=== PATIENT | male | born 1975 | race Caucasian/White ===

== ENCOUNTER 2022-09-23 21:27 | Emergency (ER) | payer SELFPAY ==
[2022-09-23 21:40] VITALS: BP 155/97; BP 168/104; PULSE 74; PULSE 76; RESP 18; TEMP 36.6; O2SAT 96; O2SAT 97; BMI 35.2
--- NOTE | 2022-09-23 21:58 | HMH.EDGENADL ---
Discharge Plan Disposition Patient Disposition: Home, Self-Care Condition: Good Prescriptions Prescriptions: New methocarbamol 750 mg tablet 750 mg PO Q8H PRN (Reason: pain) Qty: 20 0RF Referrals Follow up/Referrals: Provider,Referral, [Primary Care Provider] - See instructions Activity Restrictions/Add. Instructions Additional Instructions/Restrictions: You were evaluated in the emergency department today. At this time, we feel that your pain is musculoskeletal. Please olive picker your prescription for muscle relaxer and take as needed for pain. You may also take Tylenol and ibuprofen at home as needed. Return to the emergency department for any new or worsening symptoms. Follow-up with your primary care provider over the next 3 days. Clinical Impressions Clinical Impression: Strain of muscle of torso Stand Alone Forms Stand Alone Forms: Work/School Release Instructions Patient Instructions: DI for Muscle Strain, DI for Acute Pain -- Adult, DI for Muscle Spasm Discharge ED Provider: Melody Le General Adult HPI General Chief complaint: PAIN Stated complaint: Left side pain Time Seen by Provider: 09/23/22 21:32 Mode of Arrival: Ambulatory Source of Information: Patient Limitations: No Limitations Description of Symptoms (Recalled from ER Triage Doc. by RN): Pt states that he has had left sided rib pain for over a week. States that he was laying down and when he sat up it began to hurt. Pt states that he came to the ed tonight because he has not been able to work since it began. History of Present Illness HPI narrative: He also denies any numbness or tingling.This patient is a 47-year-old male with no significant past medical history presenting to the emergency department for evaluation with concern for left-sided rib pain for approximately 1 week. He states that whenever he sat up in bed it started to hurt. He denies any known falls or trauma. He states that it is worse with any sort of movement, especially with raising his left arm. He denies any fevers, chills, chest pain, shortness of breath, abdominal pain, nausea, vomiting, changes bowel movements, dysuria, hematuria, polyuria, or other concerns. He also denies any numbness or tingling. Related Data Previous Rx's Medication Instructions Recorded methocarbamol 750 mg tablet 750 mg PO Q8H PRN pain #20 tabs 09/23/22 Allergies Allergy/AdvReac Type Severity Reaction Status Date / Time No Known Allergies Allergy Verified 09/23/22 21:47 [facility] Disclaimer: The information contained in this section may have been updated after the patient was seen, as this information can be updated by other users. Social History Smoking Status: Current every day smoker alcohol intake: never current occupational status: employed Travel in the last 8 weeks: None ROS Obtained: Yes All systems reviewed & no additional complaints except as documented 14 point review of systems obtained and negative except as mentioned in HPI. Physical Exam General General appearance: alert and in no apparent distress Head Head exam: atraumatic and normocephalic Eye Eye exam: Present normal appearance, PERRL and EOMI ENT ENT exam: Present normal exam and normal oropharynx Neck Neck exam: Present normal inspection, full ROM and trachea midline Chest Chest inspection: Present normal inspection and symmetric chest wall rise Respiratory Respiratory exam: Present normal lung sounds bilaterally; Absent respiratory distress or wheezes Cardiovascular Cardiovascular exam: Present regular rate and normal rhythm Abdominal Exam Abdominal exam: Present soft; Absent distention, tenderness or guarding Extremities Exam Extremities exam: Present normal inspection, full ROM and normal capillary refill; Absent tenderness or edema Back Exam Back exam: Present full ROM and tenderness (Tenderness to palpation over the left p
[2022-09-23 22:14] VITALS: BP 155/97; PULSE 74; RESP 18; TEMP 36.6; O2SAT 99
== END 2022-09-23 22:20 | disposition home or self-care (01) ==
PROVIDERS: Emergency Provider Emergency Medicine
DX: S29.011A Strain of muscle and tendon of front wall of thorax, initial encounter (principal); F17.200 Nicotine dependence, unspecified, uncomplicated; X58.XXXA Exposure to other specified factors, initial encounter
CPT/HCPCS: 96372; 99283; 99284

== ENCOUNTER 2023-06-08 16:19 | Observation (INO) | payer SELFPAY ==
[2023-06-08 16:20] VITALS: BP 183/95; PULSE 98; RESP 20; TEMP 37.1; O2SAT 98; BMI 36.6
[2023-06-08 16:49] LABS: VBG Base Excess -1.9 mmol/L (-2.4-2.3); VBG HCO3 23.3 mmol/L (23-30); VBG Oxygen Saturation 92.4 % (50-70); VBG PCO2 40.5 mmol/L (35-51); VBG PH 7.38 mmol/L (7.31-7.41); VBG PO2 64.4 mmol/L (28-40); VBG Total CO2 24.5 mmol/L (23-27)
[2023-06-08] MEDS: LACTATED RINGERS 1000ML 1,000 ML 999 ML IV (16:49)
[2023-06-08 16:50] LABS: Basophils # 0.1 K/mm3 (0-0.2); Eosinophils # 0.3 K/mm3 (0.0-0.4); Eosinophils % 3.2 % (0.1-12.0); Hematocrit 49.2 % (42.0-52.0); Hemoglobin 16.8 g/dL (14.1-18.0); Lymphocytes % 24.8 % (10-50); Mean Corpuscular HGB Conc 34.1 g/dL (31.8-35.4); Mean Corpuscular Hemoglobin 31.2 pg (27.0-31.2); Mean Corpuscular Volume 91.3 fl (80-94); Mean Platelet Volume 9.1 fl (7.4-10.4); Monocytes # 0.4 K/mm3 (0.1-1.0); Monocytes % 5.2 % (1.7-9.3); Neutrophils # 5.2 K/mm3 (1.8-7.8); Neutrophils % 65.8 % (37.0-80.0); Platelet Count 179 K/mm3 (142-424); Red Blood Count 5.39 M/mm3 (4.60-6.20); Red Cell Distribution Width 13.2 % (11.5-17.5); White Blood Count 7.9 K/mm3 (4.8-10.8)
[2023-06-08 16:51] LABS: Microscopic, Urine URINE MICROSCOPIC (MICROSCOPIC)
[2023-06-08 16:59] LABS: Appearance,Urine CLEAR (Clear); Bilirubin,Urine Negative (Negative); Blood, Urine Negative (Negative); Color,Urine YELLOW (Yellow); Glucose,Urine (UA) 3+ (Negative); Ketones,Urine Negative (Negative); Leukocyte Esterase,Urine Negative (Negative); Nitrate,Urine Negative (Negative); PH,Urine 6.5 (5.0-8.5); Protein,Urine Negative (Negative); Specific Gravity, Urine <= 1.005 (1.005-1.030); Urobilinogen,Urine 0.2 EU/dl (0.2)
[2023-06-08 17:00] LABS: Alanine Aminotransferase 60 U/L (12-78); Albumin Level 3.9 g/dl (3.5-5.0); Albumin/Globulin Ratio 1.4 (1.1-1.8); Alkaline Phosphatase 122 U/L (38-126); Anion Gap 13.5 mEq/L (5-15); Aspartate Amino Transferase 44 U/L (17-59); Bilirubin,Total 0.7 mg/dl (0.2-1.3); Blood Urea Nitrogen 26 mg/dl (9-20); Calcium 8.7 mg/dl (8.4-10.2); Carbon Dioxide 26 mmol/L (22.0-30.0); Chloride 93 mmol/L (98-107); Creatinine Clearance Estimated 196 mL/min (50-200); Estimated Glomerular Filt Rate 103 ml/min (>60); GFR (African American) 125 ML/MIN (>60); Globulin 2.7 g/dL (1.3-3.2); Potassium 5.5 mmoL/L (3.5-5.1); Sodium 127 mmol/L (136-145); Total Protein,Serum 6.6 g/dl (6.3-8.2)
[2023-06-08 17:01] VITALS: BP 194/104; PULSE 102; O2SAT 92
[2023-06-08 17:10] LABS: Acetone, Serum (Rapid) None Detected (None Detect)
[2023-06-08 17:11] LABS: Glucose 873 mg/dl (74-100)
--- NOTE | 2023-06-08 17:16 | HMH.EDGENADL ---
Discharge Plan Disposition Patient Disposition: Admitted Chief Complaint: Weakness Prescriptions Prescriptions: No Action methocarbamol 750 mg tablet 750 mg PO Q8H PRN (Reason: pain) Qty: 20 0RF Referrals Follow up/Referrals: Provider,Referral, MD [Primary Care Provider] - See instructions Clinical Impressions Clinical Impression: Diabetes mellitus, new onset, Polyuria, Polydipsia Discharge ED Provider: Tim Flores General Adult HPI General Chief complaint: Weakness Stated complaint: HBP, thirsty, blurry vision Time Seen by Provider: 06/08/23 16:24 Mode of Arrival: Ambulatory Source of Information: Patient Limitations: No Limitations Description of Symptoms (Recalled from ER Triage Doc. by RN): Patient presents to ED with increased fatigue and a fasting blood sugar of high at home. Patient denies having diabetes. Denies N/V/D. History of Present Illness HPI narrative: Otherwise healthy 47-year-old male presenting with polydipsia and polyuria. Has been feeling thirsty for couple of weeks. 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 Checked his blood sugar and it was too high to read. Came to the emergency department for further evaluation. Patient has no other complaints at this time. Related Data Previous Rx's Medication Instructions Recorded methocarbamol 750 mg tablet 750 mg PO Q8H PRN pain #20 tabs 09/23/22 Allergies Allergy/AdvReac Type Severity Reaction Status Date / Time No Known Allergies Allergy Verified 09/23/22 21:47 [facility] Disclaimer: The information contained in this section may have been updated after the patient was seen, as this information can be updated by other users. Social History (Updated 09/23/22 @ 22:59 by Melody Le DO) Smoking Status: Current every day smoker alcohol intake: never current occupational status: employed Travel in the last 8 weeks: None ROS Obtained: Yes All systems reviewed & no additional complaints except as documented Physical Exam General General appearance: alert and in no apparent distress Head Head exam: atraumatic and normocephalic Eye Eye exam: Present normal appearance, PERRL and EOMI ENT ENT exam: Present mucous membranes moist Neck Neck exam: Present normal inspection, full ROM and trachea midline Respiratory Respiratory exam: Absent respiratory distress, wheezes, stridor, accessory muscle use or prolonged expiratory phase Cardiovascular Cardiovascular exam: Present normal rhythm Abdominal Exam Abdominal exam: Present soft; Absent distention, tenderness, guarding, rebound or rigidity Extremities Exam Extremities exam: Absent edema Neurological Exam Neurological exam: Present alert, oriented X3, CN II-XII intact and normal gait; Absent motor sensory deficit Skin Skin exam: Present warm and dry; Absent diaphoresis or erythema Medical Decision Making Medical Records Medical records reviewed: Yes I reviewed the patient's medical records. Elieser Inquiry Pt receiving controlled substance: No Elieser was queried for this patient: No Vital Signs: 06/08/23 16:20 06/08/23 17:01 Temperature 98.7 F Temperature Source Oral Pulse Rate 102 H Pulse Rate [Right Brachial] 98 H Respiratory Rate 20 Blood Pressure 194/104 H Blood Pressure [Right Arm] 183/95 H Blood Pressure Mean 134 Blood Pressure Mean [Right Arm] 124 Blood Pressure Source [Right Arm] Automatic Cuff Blood Pressure Position [Right Arm] Sitting 02 Sat by Pulse Oximetry 98 92 L Oxygen Delivery Method Room Air Lab Data Lab Results 06/08/23 16:35: WBC 7.9, RBC 5.39, Hgb 16.8, Hct 49.2, MCV 91.3, MCH 31.2, MCHC 34.1, RDW 13.2, Plt Count 179, MPV 9.1, Neut % (Auto) 65.8, Lymph % (Auto) 24.8, [place] % (Auto) 5.2, Eos % (Auto) 3.2, Baso % (Auto) 1.0, Neut # (Auto) 5.2, Lymph # (Auto) 2.0, [place] # (Auto) 0.4, Eos # (Auto) 0.3, Baso # (Auto) 0.1, Sodium 127 L, Potassium 5.5 H, Chloride 93 L, Carbon Dioxide 26, Anion Gap 13.5, BUN 26 H, Creatinine 0.80, Estimated Creat Clear 196, Estimated GFR 103, Est GFR ( Amer) 125, Glucose 873 H*, Hemoglobin A1c 11.7 H, Calcium 8.7, Total Bilirubin 0.7, AST 44, ALT 60, Alkaline Phosphatase 122, Total Protein 6.6, Albumin 3.9, Globulin 2.7, Albumin/Globulin Ratio 1.4, Acetone Level None detected 06/08/23 16:41: VBG pH 7.38, VBG pCO2 40.5, VBG pO2 64.4 H, VBG HCO3 23.3, VBG Total CO2 24.5, VBG O2 Saturation 92.4 H, VBG Base Excess -1.9 06/08/23 16:45: Urine Color Yellow, Urine Appearance Clear, Urine pH 6.5, Ur Specific [place] <= 1.005, Urine Protein Negative, Urine Glucose (UA) 3+, Urine Ketones Negative, Urine Blood Negative, Urine Nitrate Negative, Urine Bilirubin Negative, Urine Urobilinogen 0.2, Ur Leukocyte Esterase Negative, Urine RBC None, Urine WBC 3-5, Ur Squamous Epith Cells Occasional, Urine Bacteria None, Urine Trichomonas Occasional 06/08/23 16:35 06/08/23 16:35 Orders (Tests/Meds): ED MEDICATIONS Generic Name Dose Route Start Last Admin Trade Name Freq PRN Reason Stop Dose Admin Sodium Chloride 10 ml 06/08/23 16:41 Sodium Chloride 0.9% 10ml Flush Syringe IV 07/08/23 16:40 NEEDED PRN Maintain IV Site Discontinued Medications Generic Name Dose Route Start Last Admin Trade Name Freq PRN Reason Stop Dose Admin Sodium Chloride 1,000 mls @ 999 mls/hr 06/08/23 16:45 06/08/23 16:47 Sod Chlor 0.9% 1000ml Bag IV 06/08/23 17:45 Not Given .Q1H1M SVETLANA Lactated Ringer's 1,000 mls @ 999 mls/hr 06/08/23 16:47 06/08/23 16:49 Lactated Ringer's 1000 Ml Bag IV 06/08/23 17:47 999 mls/hr .Q1H1M ONE Administration Insulin Human Regular 6 unit 06/08/23 17:23 06/08/23 17:33 Insulin Human Regular 100 Units/Ml 10ml Vial 0.05 unit/kg (6 unit) 06/08/23 17:24 6 unit IV Administration ONCE ONE ORDERS Category Date Time Status Acetone, Serum (Rapid) Stat Lab 06/08/23 16:35 Completed CMP [Comprehensive Metabolic Panel] Stat Lab 06/08/23 16:35 Completed Complete Blood Count Auto Diff Stat Lab 06/08/23 16:35 Completed Glucose,Random Stat Lab 06/08/23 18:55 Received Hemoglobin A1C Stat Lab 06/08/23 16:35 Completed Urinalysis-Acute [Urinalysis and Microscopic] Stat Lab 06/08/23 16:45 Completed Venous Blood Gas Stat RT 06/08/23 16:41 Completed Medical Decision Narrative: Otherwise healthy 47-year-old male presenting with polydipsia and polyuria. Has been feeling thirsty for couple of weeks. 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 Checked his blood sugar and it was too high to read. Came to the emergency department for further evaluation. Patient has no other complaints at this time. History was obtained via conversation with patient. On arrival, patient hemodynamically stable, alert, oriented x4, appropriate, GCS 15, moving all extremities spontaneously, pupils equal and reactive to light. Full physical exam performed and significant for well-appearing male no acute distress. He smells of ketones. Hemodynamically stable, hypertensive if anything. Nontachycardic. Saturating appropriately. Abdomen is soft, nontender. Cardiopulmonary exam normal. Differential includes type I versus type 2 diabetes, DKA, HHNK, metabolic, endocrinologic, medication induced, among others. Patient was given fluid bolus for symptomatic management and correction of underlying abnormalities. Workup independently interpreted and significant for hyperglycemia glucose greater than 800, hemoglobin A1c 11.7. Also hyperkalemic and hyponatremic. Kidney function normal. Urinalysis with glucose, but no ketones. Acetone negative. Nonactionable CBC. On reevaluation, patient given 6 units insulin, repeat glucose too high to read. Repeat quantitative glucose was sent. Prior to repeat glucose, medicine was contacted for evaluation for admission and diabetes management, agreeable to plan. Given patient presentation, workup, history, this most likely represents new onset diabetes. Because patient high risk for clinical decompensation, deemed appropriate for inpatient admission. Results were relayed to patient who voiced understanding and patient was agreeable to inpatient admission and management. Patient was admitted to the hospital for further definitive management. Critical Care Critical Care Time Critical Care Time: No
--- NOTE | 2023-06-08 17:23 | PC.NURSE ---
LAB CALLED WITH CRITICAL GLUCOSE OF 783 AWARE
[2023-06-08 17:24] LABS: Hemoglobin A1C 11.7 % (4.0-6.0)
[2023-06-08 17:31] LABS: Squamous Epithelial Cell,Urine Occasional #/hpf (0-5); Trichomonas,Urine Occasional /lpf
[2023-06-08] MEDS: INSULIN HUMAN REGULAR 100 UNITS/ML 10ML VIAL 6 UNIT IV (17:33)
--- NOTE | 2023-06-08 18:33 | PC.NURSE ---
FINGER STICK STILL READING HIGH LAB CALLED
--- NOTE | 2023-06-08 18:52 | PC.NURSE ---
talking with hospitalist
--- NOTE | 2023-06-08 19:19 | PC.NURSE ---
patient being admitted to second floor at this time.
--- NOTE | 2023-06-08 19:25 | PC.NURSE ---
Addendum entered by Helene Llanes RN 06/08/23 19:25: OBSERVATION ADMISSION TO 212 WITH DX OF NEW ONSET DM TO SERVICE OF HOSPITALIST. Original Note: OBSERVATION ADMISSION TO
[2023-06-08 19:35] LABS: Glucose,Random 702 mg/dL (74-100)
--- NOTE | 2023-06-08 19:37 | PC.NURSE ---
Lauren from the lab called in a critical lab value for Pt. Glucose is 702. and RN advised. CR
--- NOTE | 2023-06-08 19:59 | P.HP_ITS ---
Attending attestation Patient was seen and evaluated at the bedside myself, agree with CALVIN note. History of Present Illness *Admission Date: 06/08/23 *Reason for visit:: hyperglycemia *History of present illness: This is a 47-year-old obese male with referred PMHx of hypertension, no currently on any medication, due to lack of insurance, current smoker presenting with polydipsia and polyuria. Has been feeling weak, lightheadedness, thirsty for couple of weeks. but symptoms worsened over the last two days. Stated that he told his sister who is and RN about this symptoms and they recommended to measure his BS ending on too high to read. Came to the emergency department for further evaluation. Patient has no other complaints at this time. Admitted for further management. [facility] Disclaimer: The information contained in this section may have been updated after the patient was seen, as this information can be updated by other users. Social History (Updated 09/23/22 @ 22:59 by Melody Le DO) Smoking Status: Current every day smoker alcohol intake: never current occupational status: employed Travel in the last 8 weeks: None Review of Systems Review of Systems Review of systems:: pertinent systems reviewed and negative unless documented below Meds Home Medications and Allergies Home Medications Medication Instructions Recorded Confirmed Type methocarbamol 750 mg tablet 750 mg PO Q8H PRN pain #20 tabs 09/23/22 Rx New Prescriptions to Start Prescriptions: Allergies Allergy/AdvReac Type Severity Reaction Status Date / Time No Known Allergies Allergy Verified 09/23/22 21:47 Exam Data for Last 24 hours Vital signs and Labs for Last 24 Hours: Temp Pulse Resp BP Pulse Ox O2 Del Method 98.7 F 102 H 20 194/104 H 92 L Room Air 06/08/23 16:20 06/08/23 17:01 06/08/23 16:20 06/08/23 17:06/08/23 17:06/08/23 16:20 Laboratory Results - last 24 hr 06/08/23 16:35: WBC 7.9, RBC 5.39, Hgb 16.8, Hct 49.2, MCV 91.3, MCH 31.2, MCHC 34.1, RDW 13.2, Plt Count 179, MPV 9.1, Neut % (Auto) 65.8, Lymph % (Auto) 24.8, [place] % (Auto) 5.2, Eos % (Auto) 3.2, Baso % (Auto) 1.0, Neut # (Auto) 5.2, Lymph # (Auto) 2.0, [place] # (Auto) 0.4, Eos # (Auto) 0.3, Baso # (Auto) 0.1, Sodium 127 L, Potassium 5.5 H, Chloride 93 L, Carbon Dioxide 26, Anion Gap 13.5, BUN 26 H, Creatinine 0.80, Estimated Creat Clear 196, Estimated GFR 103, Est GFR ( Amer) 125, Glucose 873 H*, Hemoglobin A1c 11.7 H, Calcium 8.7, Total Bilirubin 0.7, AST 44, ALT 60, Alkaline Phosphatase 122, Total Protein 6.6, Albumin 3.9, Globulin 2.7, Albumin/Globulin Ratio 1.4, Acetone Level None detected 06/08/23 16:41: VBG pH 7.38, VBG pCO2 40.5, VBG pO2 64.4 H, VBG HCO3 23.3, VBG Total CO2 24.5, VBG O2 Saturation 92.4 H, VBG Base Excess -1.9 06/08/23 16:45: Urine Color Yellow, Urine Appearance Clear, Urine pH 6.5, Ur Specific [place] <= 1.005, Urine Protein Negative, Urine Glucose (UA) 3+, Urine Ketones Negative, Urine Blood Negative, Urine Nitrate Negative, Urine Bilirubin Negative, Urine Urobilinogen 0.2, Ur Leukocyte Esterase Negative, Urine RBC None, Urine WBC 3-5, Ur Squamous Epith Cells Occasional, Urine Bacteria None, Urine Trichomonas Occasional 06/08/23 18:55: Random Glucose 702 H* I & O for Last 24 hours: Intake & Output 06/05/23 06/06/23 06/07/23 06/08/23 23:59 23:59 23:59 23:59 Weight 122.47 kg Constitutional Constitutional: mild distress, obese and cooperative *Routine HEENT Exam Head: Present normocephalic and atraumatic Eye: Present EOMI, PERRL and normal accommodation ENT: Present mucous membranes moist *Routine Neck Exam Neck: Present supple, full ROM and trachea midline *Routine Respiratory Exam Respiratory: Present normal respiratory effort, able to speak in complete sentences and symmetric chest movement; Absent respiratory distress *Routine Cardiovascular Exam Cardiovascular: Present RRR, Normal S1 and Normal S2 *Routine Abdominal Exam Abdominal: Present soft, normoactive bowel sounds and obese; Absent organomegaly *Routine Rectal Exam Rectal:: deferred *Routine Genitalia Exam Genitalia:: deferred *Routine Extremities Exam Extremities: Present full ROM and pulses intact; Absent cyanosis, clubbing or edema *Routine Skin Exam Skin: Present intact, dry and warm *Routine Neurological Exam Neurological: Present alert, oriented X3, normal reflexes, moving all extremities and normal speech Routine Psychiatric Exam Psychiatric: Present normal thought process, cooperative and good judgment H&P: Result Imaging and Cardiology EKG: Status: image reviewed by me and Preliminary report Assessment and Plan *Assessment and plan (1) Diabetes mellitus, new onset: Status: Acute Category: Medical Code(s): E11.9 - Type 2 diabetes mellitus without complications (2) Hypertension: Status: Acute Qualifiers: Hypertension type: unspecified Qualified Code(s): I10 - Essential (primary) hypertension Category: Medical Code(s): I10 - Essential (primary) hypertension (3) Current smoker: Status: Acute Category: Social Hx Code(s): F17.200 - Nicotine dependence, unspecified, uncomplicated (4) Obesity (BMI 30-39.9): Status: Acute Category: Medical Code(s): E66.9 - Obesity, unspecified Plan 47-year-old obese male with referred PMHx of hypertension, no currently on any medication, due to lack of insurance, current smoker presenting with polydipsia and polyuria. Has been feeling weak, lightheadedness, thirsty for couple of weeks. On arrival patient presented hemodinamically stable. BS read 800's. Patient no on acidosis or HH state. 6 units of insuline given. Due to high risk of decompensation, patient may be beneficial for admission. Discussed with ER provider. Plan as follow: -Diabetes new onset: Admit patient for medical service. Dispo MedSurg. Start continuous monitor. vital signs per unit protocol Blood sugar check before meals. On Humalog on sliding scale. Renal function normal. Might be discharged on metformin Monitor CBC CMP daily Continue IV hydration, 100 MLS per hour normal saline Provide new diabetes diagnosis education, about diet and treatment -Past medical history of hypertension: Patient cannot recall was reviewed medication he was on. Will get a started on lisinopril 20 mg daily Watch and monitor BP and heart rate Educated about lifestyle changes Encouraged to establish a PCP relationship to manage and follow-up chronic conditions Will obtain checks x-ray, EKG, and ultrasound of renal for evaluation Lipid profile in the morning to assess cardiac risk -Current smoker: Education provided about smoking cessation. On nicotine patch -Obesity: Encouraged on weight management. Also educated about obesity and comorbidities PCP to follow-up abnormal BMI, when established Lovenox for DVT prophylaxis, my started on aspirin and statin Protonix for GI bleed prophylaxis Full code
[2023-06-08 20:19] LABS: Chloride 97 mmol/L (98-107); Potassium 4.7 mmoL/L (3.5-5.1); Sodium 129 mmol/L (136-145)
[2023-06-08 20:22] LABS: Alanine Aminotransferase 57 U/L (12-78); Albumin Level 3.9 g/dl (3.5-5.0); Albumin/Globulin Ratio 1.4 (1.1-1.8); Alkaline Phosphatase 126 U/L (38-126); Anion Gap 11.7 mEq/L (5-15); Aspartate Amino Transferase 40 U/L (17-59); Bilirubin,Total 0.7 mg/dl (0.2-1.3); Blood Urea Nitrogen 30 mg/dl (9-20); Calcium 9.2 mg/dl (8.4-10.2); Carbon Dioxide 25 mmol/L (22.0-30.0); Creatinine Clearance Estimated 224 mL/min (50-200); Estimated Glomerular Filt Rate 120 ml/min (>60); GFR (African American) 146 ML/MIN (>60); Globulin 2.8 g/dL (1.3-3.2); Total Protein,Serum 6.7 g/dl (6.3-8.2)
[2023-06-08 20:24] LABS: Glucose 597 mg/dl (74-100)
--- NOTE | 2023-06-08 20:31 | PC.NURSE ---
Report called to NILS Lopez
[2023-06-08 20:44] VITALS: BP 183/104; PULSE 85; RESP 17; TEMP 36.6; O2SAT 96; BMI 38.2
--- NOTE | 2023-06-08 20:44 | PC.NURSE ---
pt arrived to the floor via wheelchair @ 20:39
--- NOTE | 2023-06-08 21:04 | XR_ITS ---
PROCEDURE INFORMATION: Exam: XR Chest Exam date and time: 06/08/2023 9:09 PM Age: 47 years old Clinical indication: Pain; Other: HTN TECHNIQUE: Imaging protocol: Radiologic exam of the chest. Views: 1 view. COMPARISON: No relevant prior studies available. FINDINGS: Lungs: Normal. Pleural spaces: Normal No pleural effusion. No pneumothorax. Heart/Mediastinum: Normal. No cardiomegaly. Bones/joints: Unremarkable. IMPRESSION: No acute findings.
[2023-06-08 21:14] VITALS: BP 00/00; PULSE 79; RESP 18; TEMP 36.8
[2023-06-08] MEDS: ENOXAPARIN 40MG/0.4ML SYRINGE 40 MG SQ (21:17)
[2023-06-08] MEDS: 0.9 % SODIUM CHLORIDE 1000ML 1,000 ML 100 ML IV (21:17)
[2023-06-08] MEDS: PANTOPRAZOLE 40MG TABLET 40 MG PO (21:19)
[2023-06-08] MEDS: humaLOG 100 UNITS/ML 3ML VIAL (SSI) SQ (21:24)
[2023-06-08 21:38] LABS: POC Glucose,Bedside 515 (70-110)
[2023-06-09] VITALS: BP 140/78; PULSE 86; RESP 16; TEMP 36.6; O2SAT 91
--- NOTE | 2023-06-09 | US_ITS ---
FINAL REPORT CLINICAL HISTORY: Elevated sugars COMPARISON: None FINDINGS: RENAL ULTRASOUND Ultrasound images of the kidneys were obtained. Limited images of the liver parenchyma demonstrates fatty infiltration. The spleen is at the upper limits of normal in size measuring 12.8 cm. The right kidney measures 13.1 cm in length. It is normal echogenicity. There is no hydronephrosis. The left kidney measures 12.3 cm in length. It is normal echogenicity. There is no hydronephrosis. IMPRESSION: Normal renal ultrasound. Fatty liver. Reviewed, Interpreted and Dictated by Morales Hitchcock III, MD Transcribed by Sherita Du Authenticated and [facility]
[2023-06-09 00:16] LABS: POC Glucose,Bedside 381 (70-110)
[2023-06-09 04:00] VITALS: BP 170/96; PULSE 82; RESP 16; TEMP 36.6; O2SAT 95; BMI 38.2
[2023-06-09] MEDS: ACETAMINOPHEN 325MG TAB 650 MG PO (04:06)
--- NOTE | 2023-06-09 05:44 | PC.NURSE ---
patient has remained asymptomatic t/o night. Hospitalist notified as needed t/o shift of FSBS. Tx per JUL.
[2023-06-09 06:28] LABS: Basophils # 0.1 K/mm3 (0-0.2); Basophils % 0.8 % (0.1-2.0); Eosinophils # 0.4 K/mm3 (0.0-0.4); Eosinophils % 5.2 % (0.1-12.0); Hematocrit 44.1 % (42.0-52.0); Hemoglobin 15.9 g/dL (14.1-18.0); Lymphocytes # 2.8 K/mm3 (0.7-4.5); Lymphocytes % 36.8 % (10-50); Mean Corpuscular Hemoglobin 31.6 pg (27.0-31.2); Mean Corpuscular Volume 87.7 fl (80-94); Mean Platelet Volume 8.5 fl (7.4-10.4); Monocytes # 0.3 K/mm3 (0.1-1.0); Monocytes % 4.4 % (1.7-9.3); Neutrophils # 3.9 K/mm3 (1.8-7.8); Neutrophils % 52.8 % (37.0-80.0); Platelet Count 174 K/mm3 (142-424); Red Blood Count 5.02 M/mm3 (4.60-6.20); Red Cell Distribution Width 13.4 % (11.5-17.5); White Blood Count 7.5 K/mm3 (4.8-10.8)
[2023-06-09] MEDS: humaLOG 100 UNITS/ML 3ML VIAL (SSI) SQ ×2 (06:41→11:17)
[2023-06-09] MEDS: METFORMIN 500MG TABLET 500 MG PO (06:41)
[2023-06-09 06:48] LABS: Chol/HDL Ratio 9.4 (1-3.5); Cholesterol 179 mg/dl (140-200); HDL Cholesterol 19 mg/dl (40-60)
[2023-06-09 06:49] LABS: Alanine Aminotransferase 47 U/L (12-78); Albumin Level 3.5 g/dl (3.5-5.0); Albumin/Globulin Ratio 1.3 (1.1-1.8); Alkaline Phosphatase 102 U/L (38-126); Anion Gap 9.9 mEq/L (5-15); Aspartate Amino Transferase 43 U/L (17-59); Bilirubin,Total 0.8 mg/dl (0.2-1.3); Blood Urea Nitrogen 22 mg/dl (9-20); Calcium 7.9 mg/dl (8.4-10.2); Carbon Dioxide 26 mmol/L (22.0-30.0); Chloride 102 mmol/L (98-107); Creatinine Clearance Estimated 233 mL/min (50-200); Estimated Glomerular Filt Rate 120 ml/min (>60); GFR (African American) 146 ML/MIN (>60); Globulin 2.8 g/dL (1.3-3.2); Glucose 320 mg/dl (74-100); Potassium 3.9 mmoL/L (3.5-5.1); Sodium 134 mmol/L (136-145); Total Protein,Serum 6.3 g/dl (6.3-8.2)
[2023-06-09 06:51] LABS: POC Glucose,Bedside 309 (70-110)
[2023-06-09 06:58] LABS: Triglycerides 823 mg/dl (30-150)
[2023-06-09 06:59] LABS: Direct LDL Cholesterol 48.14 mg/dL (100-129)
--- NOTE | 2023-06-09 07:36 | HMH.PHAINT1 ---
Pharmacy Intervention Comments: Verified with patient at bedside, no current home medications prior to admission.
[2023-06-09 08:00] VITALS: BP 132/81; PULSE 87; RESP 18; TEMP 36.8; O2SAT 95
[2023-06-09] MEDS: 0.9 % SODIUM CHLORIDE 1000ML 1,000 ML 100 ML IV (09:36)
[2023-06-09] MEDS: ENOXAPARIN 40MG/0.4ML SYRINGE 40 MG SQ (09:37)
[2023-06-09] MEDS: LISINOPRIL 20MG TABLET 20 MG PO (09:44)
[2023-06-09] MEDS: PANTOPRAZOLE 40MG TABLET 40 MG PO (09:44)
[2023-06-09] MEDS: ASPIRIN EC 81MG TABLET 81 MG PO (09:44)
[2023-06-09] MEDS: humaLOG 100 UNITS/ML 3ML VIAL (SSI) 8 UNIT SQ (09:45)
[2023-06-09 10:02] LABS: POC Glucose,Bedside 367 (70-110)
[2023-06-09 11:19] LABS: POC Glucose,Bedside 336 (70-110)
--- NOTE | 2023-06-09 11:51 | DIET.NUTRFU ---
Patient has new dx of DM, familiar with insulin administration-his Dad was DM. Reviewed multiple diabetic handouts and meal plans. He typically eats biscuits and gravy often and drink regular Mt Dew. Upon visit he reported he would cut biscuits and gravy out and he already had a Diet Mt Dew at bedside. Encouraged routine meals and high fiber foods. Reviewed portion control and label reading. Also provided instruction how to schedule a outpatient dietitian appt. and encouraged him to setup followup with PCP. Currently he does not PCP and no insurance till July.
[2023-06-09] MEDS: humaLOG 100 UNITS/ML 3ML VIAL (SSI) 7 UNIT SQ (12:59)
[2023-06-09 13:02] LABS: POC Glucose,Bedside 275 (70-110)
--- NOTE | 2023-06-09 16:10 | EXP.DC.SUM ---
General Admission date:: 06/08/23 Discharge date: 06/09/23 HPI HPI HPI: This is a 47-year-old obese male with referred PMHx of hypertension, no currently on any medication, due to lack of insurance, current smoker presenting with polydipsia and polyuria. Has been feeling weak, lightheadedness, thirsty for couple of weeks. but symptoms worsened over the last two days. Stated that he told his sister who is and RN about this symptoms and they recommended to measure his BS ending on too high to read. Came to the emergency department for further evaluation. Patient has no other complaints at this time. Admitted for further management. Hospital Course Hospital Course Hospital Course: 47-year-old obese male with referred PMHx of hypertension, no currently on any medication, due to lack of insurance, current smoker presenting with polydipsia and polyuria. Has been feeling weak, lightheadedness, thirsty for couple of weeks. On arrival patient presented hemodinamically stable. BS read 800's. Patient no on acidosis or HH state. 6 units of insuline given. Due to high risk of decompensation, patient may be beneficial for admission. Discussed with ER provider. Plan as follow: -Diabetes new onset: - improved, dc on lantus and Metformin, educated on diabetic diet and weight reduction. Patient also given PCP referral, He does not have insurance, consulted with CM/DORA to arrange Diabetic meds and supplies -Past medical history of hypertension: dc on lisinopril Exam Data for Last 24 hours Vital signs and Labs for Last 24 Hours: Temp Pulse Resp BP Pulse Ox O2 Del Method 98.3 F 87 18 132/81 95 Room Air 06/09/23 08:00 06/09/23 08:00 06/09/23 08:00 06/09/23 08:00 06/09/23 08:00 06/09/23 14:56 Laboratory Results - last 24 hr 06/08/23 16:35: WBC 7.9, RBC 5.39, Hgb 16.8, Hct 49.2, MCV 91.3, MCH 31.2, MCHC 34.1, RDW 13.2, Plt Count 179, MPV 9.1, Neut % (Auto) 65.8, Lymph % (Auto) 24.8, [place] % (Auto) 5.2, Eos % (Auto) 3.2, Baso % (Auto) 1.0, Neut # (Auto) 5.2, Lymph # (Auto) 2.0, [place] # (Auto) 0.4, Eos # (Auto) 0.3, Baso # (Auto) 0.1, Sodium 127 L, Potassium 5.5 H, Chloride 93 L, Carbon Dioxide 26, Anion Gap 13.5, BUN 26 H, Creatinine 0.80, Estimated Creat Clear 196, Estimated GFR 103, Est GFR ( Amer) 125, Glucose 873 H*, Hemoglobin A1c 11.7 H, Calcium 8.7, Total Bilirubin 0.7, AST 44, ALT 60, Alkaline Phosphatase 122, Total Protein 6.6, Albumin 3.9, Globulin 2.7, Albumin/Globulin Ratio 1.4, Acetone Level None detected 06/08/23 16:41: VBG pH 7.38, VBG pCO2 40.5, VBG pO2 64.4 H, VBG HCO3 23.3, VBG Total CO2 24.5, VBG O2 Saturation 92.4 H, VBG Base Excess -1.9 06/08/23 16:45: Urine Color Yellow, Urine Appearance Clear, Urine pH 6.5, Ur Specific [place] <= 1.005, Urine Protein Negative, Urine Glucose (UA) 3+, Urine Ketones Negative, Urine Blood Negative, Urine Nitrate Negative, Urine Bilirubin Negative, Urine Urobilinogen 0.2, Ur Leukocyte Esterase Negative, Urine RBC None, Urine WBC 3-5, Ur Squamous Epith Cells Occasional, Urine Bacteria None, Urine Trichomonas Occasional 06/08/23 18:55: Random Glucose 702 H* 06/08/23 20:05: Sodium 129 L, Potassium 4.7, Chloride 97 L, Carbon Dioxide 25, Anion Gap 11.7, BUN 30 H, Creatinine 0.70, Estimated Creat Clear 224, Estimated GFR 120, Est GFR ( Amer) 146, Glucose 597 H* D, Calcium 9.2, Total Bilirubin 0.7, AST 40, ALT 57, Alkaline Phosphatase 126, Total Protein 6.7, Albumin 3.9, Globulin 2.8, Albumin/Globulin Ratio 1.4 06/08/23 21:21: POC Glucose 515 H* 06/09/23 00:09: POC Glucose 381 H* 06/09/23 05:21: WBC 7.5, RBC 5.02, Hgb 15.9, Hct 44.1, MCV 87.7, MCH 31.6 H, MCHC 36.0 H, RDW 13.4, Plt Count 174, MPV 8.5, Neut % (Auto) 52.8, Lymph % (Auto) 36.8, [place] % (Auto) 4.4, Eos % (Auto) 5.2, Baso % (Auto) 0.8, Neut # (Auto) 3.9, Lymph # (Auto) 2.8, [place] # (Auto) 0.3, Eos # (Auto) 0.4, Baso # (Auto) 0.1, Sodium 134 L, Potassium 3.9, Chloride 102, Carbon Dioxide 26, Anion Gap 9.9, BUN 22 H D, Creatinine 0.70, Estimated Creat Clear 233, Estimated GFR 120, Est GFR ( Amer) 146, Glucose 320 H D, Calcium 7.9 L, Magnesium 2.0, Total Bilirubin 0.8, AST 43, ALT 47, Alkaline Phosphatase 102, Total Protein 6.3, Albumin 3.5 D, Globulin 2.8, Albumin/Globulin Ratio 1.3, Triglycerides 823 H, Cholesterol 179, LDL Cholesterol Direct 48.14 L, HDL Cholesterol 19 L, Cholesterol/HDL Ratio 9.4 H 06/09/23 06:40: POC Glucose 309 H* 06/09/23 09:43: POC Glucose 367 H* 06/09/23 11:09: POC Glucose 336 H* 06/09/23 12:53: POC Glucose 275 H I & O for Last 24 hours: Intake & Output 06/06/23 06/07/23 06/08/23 06/09/23 23:59 23:59 23:59 23:59 Intake Total 850 / 850 1020 / 1020 Output Total 350 / 350 Balance 850 / 850 670 / 670 Weight 127.913 kg 127.913 kg Constitutional Constitutional: no acute distress *Routine HEENT Exam Head: Present normocephalic Eye: Present EOMI and PERRL ENT: Present mucous membranes moist *Routine Neck Exam Neck: Present supple; Absent lymphadenopathy *Routine Respiratory Exam Respiratory: Present CTA bilaterally *Routine Cardiovascular Exam Cardiovascular: Present RRR *Routine Abdominal Exam Abdominal: Present soft and normoactive bowel sounds; Absent tenderness *Routine Extremities Exam Extremities: Absent cyanosis, clubbing or edema *Routine Skin Exam Skin: Present warm; Absent rash *Routine Neurological Exam Neurological: Present alert and oriented X3 Results Data Completed and Pending Labs on day of discharge: Labs from last 24 hours 06/09/23 06/09/23 06/09/23 12:53 11:09 09:43 WBC RBC Hgb Hct MCV MCH MCHC RDW Plt Count MPV Neut % (Auto) Lymph % (Auto) [place] % (Auto) Eos % (Auto) Baso % (Auto) Neut # (Auto) Lymph # (Auto) [place] # (Auto) Eos # (Auto) Baso # (Auto) VBG pH VBG pCO2 VBG pO2 VBG HCO3 VBG Total CO2 VBG O2 Saturation VBG Base Excess Sodium Potassium Chloride Carbon Dioxide Anion Gap BUN Creatinine Estimated Creat Clear Estimated GFR Est GFR ( Amer) Glucose POC Glucose 275 H 336 H* 367 H* Random Glucose Hemoglobin A1c Calcium Magnesium Total Bilirubin AST ALT Alkaline Phosphatase Total Protein Albumin Globulin Albumin/Globulin Ratio Triglycerides Cholesterol LDL Cholesterol Direct HDL Cholesterol Cholesterol/HDL Ratio Urine Color Urine Appearance Urine pH Ur Specific [place] Urine Protein Urine Glucose (UA) Urine Ketones Urine Blood Urine Nitrate Urine Bilirubin Urine Urobilinogen Ur Leukocyte Esterase Urine RBC Urine WBC Ur Squamous Epith Cells Urine Bacteria Urine Trichomonas Acetone Level 06/09/23 06/09/23 06/09/23 06:40 05:21 00:09 WBC 7.5 RBC 5.02 Hgb 15.9 Hct 44.1 MCV 87.7 MCH 31.6 H MCHC 36.0 H RDW 13.4 Plt Count 174 MPV 8.5 Neut % (Auto) 52.8 Lymph % (Auto) 36.8 [place] % (Auto) 4.4 Eos % (Auto) 5.2 Baso % (Auto) 0.8 Neut # (Auto) 3.9 Lymph # (Auto) 2.8 [place] # (Auto) 0.3 Eos # (Auto) 0.4 Baso # (Auto) 0.1 VBG pH VBG pCO2 VBG pO2 VBG HCO3 VBG Total CO2 VBG O2 Saturation VBG Base Excess Sodium 134 L Potassium 3.9 Chloride 102 Carbon Dioxide 26 Anion Gap 9.9 BUN 22 H D Creatinine 0.70 Estimated Creat Clear 233 Estimated GFR 120 Est GFR ( Amer) 146 Glucose 320 H D POC Glucose 309 H* 381 H* Random Glucose Hemoglobin A1c Calcium 7.9 L Magnesium 2.0 Total Bilirubin 0.8 AST 43 ALT 47 Alkaline Phosphatase 102 Total Protein 6.3 Albumin 3.5 D Globulin 2.8 Albumin/Globulin Ratio 1.3 Triglycerides 823 H Cholesterol 179 LDL Cholesterol Direct 48.14 L HDL Cholesterol 19 L Cholesterol/HDL Ratio 9.4 H Urine Color Urine Appearance Urine pH Ur Specific [place] Urine Protein Urine Glucose (UA) Urine Ketones Urine Blood Urine Nitrate Urine Bilirubin Urine Urobilinogen Ur Leukocyte Esterase Urine RBC Urine WBC Ur Squamous Epith Cells Urine Bacteria Urine Trichomonas Acetone Level 06/08/23 06/08/23 06/08/23 21:21 20:05 18:55 WBC RBC Hgb Hct MCV MCH MCHC RDW Plt Count MPV Neut % (Auto) Lymph % (Auto) [place] % (Auto) Eos % (Auto) Baso % (Auto) Neut # (Auto) Lymph # (Auto) [place] # (Auto) Eos # (Auto) Baso # (Auto) VBG pH VBG pCO2 VBG pO2 VBG HCO3 VBG Total CO2 VBG O2 Saturation VBG Base Excess Sodium 129 L Potassium 4.7 Chloride 97 L Carbon Dioxide 25 Anion Gap 11.7 BUN 30 H Creatinine 0.70 Estimated Creat Clear 224 Estimated GFR 120 Est GFR ( Amer) 146 Glucose 597 H* D POC Glucose 515 H* Random Glucose 702 H* Hemoglobin A1c Calcium 9.2 Magnesium Total Bilirubin 0.7 AST 40 ALT 57 Alkaline Phosphatase 126 Total Protein 6.7 Albumin 3.9 Globulin 2.8 Albumin/Globulin Ratio 1.4 Triglycerides Cholesterol LDL Cholesterol Direct HDL Cholesterol Cholesterol/HDL Ratio Urine Color Urine Appearance Urine pH Ur Specific [place] Urine Protein Urine Glucose (UA) Urine Ketones Urine Blood Urine Nitrate Urine Bilirubin Urine Urobilinogen Ur Leukocyte Esterase Urine RBC Urine WBC Ur Squamous Epith Cells Urine Bacteria Urine Trichomonas Acetone Level 06/08/23 06/08/23 06/08/23 16:45 16:41 16:35 WBC 7.9 RBC 5.39 Hgb 16.8 Hct 49.2 MCV 91.3 MCH 31.2 MCHC 34.1 RDW 13.2 Plt Count 179 MPV 9.1 Neut % (Auto) 65.8 Lymph % (Auto) 24.8 [place] % (Auto) 5.2 Eos % (Auto) 3.2 Baso % (Auto) 1.0 Neut # (Auto) 5.2 Lymph # (Auto) 2.0 [place] # (Auto) 0.4 Eos # (Auto) 0.3 Baso # (Auto) 0.1 VBG pH 7.38 VBG pCO2 40.5 VBG pO2 64.4 H VBG HCO3 23.3 VBG Total CO2 24.5 VBG O2 Saturation 92.4 H VBG Base Excess -1.9 Sodium 127 L Potassium 5.5 H Chloride 93 L Carbon Dioxide 26 Anion Gap 13.5 BUN 26 H Creatinine 0.80 Estimated Creat Clear 196 Estimated GFR 103 Est GFR ( Amer) 125 Glucose 873 H* POC Glucose Random Glucose Hemoglobin A1c 11.7 H Calcium 8.7 Magnesium Total Bilirubin 0.7 AST 44 ALT 60 Alkaline Phosphatase 122 Total Protein 6.6 Albumin 3.9 Globulin 2.7 Albumin/Globulin Ratio 1.4 Triglycerides Cholesterol LDL Cholesterol Direct HDL Cholesterol Cholesterol/HDL Ratio Urine Color Yellow Urine Appearance Clear Urine pH 6.5 Ur Specific [place] <= 1.005 Urine Protein Negative Urine Glucose (UA) 3+ Urine Ketones Negative Urine Blood Negative Urine Nitrate Negative Urine Bilirubin Negative Urine Urobilinogen 0.2 Ur Leukocyte Esterase Negative Urine RBC None Urine WBC 3-5 Ur Squamous Epith Cells Occasional Urine Bacteria None Urine Trichomonas Occasional Acetone Level None detected DS: Diagnosis Discharge Diagnosis (1) Diabetes mellitus, new onset: Status: Acute Code(s): E11.9 - Type 2 diabetes mellitus without complications (2) Hypertension: Status: Acute Code(s): I10 - Essential (primary) hypertension Qualifiers: Hypertension type: unspecified Qualified Code(s): I10 - Essential (primary) hypertension (3) Current smoker: Status: Acute Code(s): F17.200 - Nicotine dependence, unspecified, uncomplicated (4) Obesity (BMI 30-39.9): Status: Acute Code(s): E66.9 - Obesity, unspecified Meds Home Medications and Allergies Home Medications Medication Instructions Recorded Confirmed Type blood-glucose meter (Blood Glucose #1 06/09/23 Rx Monitoring kit) diabetic supplies, [employer]. #10 06/09/23 Rx insulin glargine 100 unit/mL (3 10 unit (0.1 mL) SQ HS 30 days #3 06/09/23 Rx mL) subcutaneous pen (Lantus mL Solostar U-100 Insulin) lisinopril 20 mg tablet 20 mg PO DAILY 30 days #30 tabs 06/09/23 Rx metformin 500 mg tablet 500 mg PO BID 30 days #60 tabs 06/09/23 Rx nicotine 21 mg/24 hr daily 21 mg transdermal DAILYP PRN 06/09/23 Rx transdermal patch Nicotine Cravings 30 days #30 ea New Prescriptions to Start Prescriptions: blood-glucose meter [Blood Glucose Monitoring] Lenore Schofield diabetic supplies, [employer]. Chandu,Lenore insulin glargine [Lantus Solostar U-100 Insulin] Chandu,Lenore lisinopril Chandu,Nicolegriselda metformin Chandu,Irfgriselda nicotine Chandu,Irfan Allergies Allergy/AdvReac Type Severity Reaction Status Date / Time No Known Allergies Allergy Verified 09/23/22 21:47 Discharge Plan Disposition Patient Disposition: Home, Self-Care Condition: Good Follow up Plan Follow up with: Trey Gracia DO [Staff Physician] - 06/23/23 10:45 am Prescriptions/Medication Reconciliation: New insulin glargine [Lantus Solostar U-100 Insulin] 100 unit/mL (3 mL) insulin pen 10 unit SQ HS 30 Days Qty: 3 1RF metformin 500 mg tablet 500 mg PO BID 30 Days Qty: 60 0RF lisinopril 20 mg Tablet 20 mg PO DAILY 30 Days Qty: 30 0RF nicotine 21 mg/24 hr Patch 24 Hour 21 mg transdermal DAILYP PRN (Reason: Nicotine Cravings) 30 Days Qty: 30 0RF (DME) diabetic supplies, [employer]. Misc See Rx Instructions .Route Qty: 10 0RF Rx Instructions: As directed (DME) blood-glucose meter [Blood Glucose Monitoring] Kit See Rx Instructions .Route Qty: 1 0RF Rx Instructions: As directed Problem Reconciliation Problems Reviewed?: No Patient Discharge Instructions ACTIVITY: Ambulate as tolerated DIET: advance to your usual diet Patient Instructions: How to Check Your Blood Glucose, Essential Hypertension, DI for Diabetes Type 2, The Importance of Counting Carbs If You Have Diabetes, What to Eat if You Have Diabetes Providers Primary Care Provider: Provider,Referral Admit Provider: Lenore Schofield Attending Provider: Lenore Schofield
--- NOTE | 2023-06-10 11:05 | CARE MANAGER ---
Contacted patient related to hospital discharge. Patient states he left his discharge paperwork at the hospital. We reviewed his medications and follow up appointment. He states he did not get needles to go with the insulin pen. He is coming back to pharmacy today to get those. Denies other questions or concerns at this time.
== END 2023-06-09 16:19 | disposition home or self-care (01) ==
LOC: ER 19:09 → 2ND 19:31
PROVIDERS: Nurse Practitioner Family; Admitting Provider Internal Medicine; Emergency Provider Emergency Medicine; Visit Provider Internal Medicine
DX: E11.9 Type 2 diabetes mellitus without complications (principal); F17.200 Nicotine dependence, unspecified, uncomplicated; I10 Essential (primary) hypertension; E66.9 Obesity, unspecified; Z68.38 Body mass index [BMI] 38.0-38.9, adult
CPT/HCPCS: 36415; 71045; 76770; 80053; 80061; 81001; 82009; 82803; 82947; 82962; 83036; 83735; 85025; G0378

== ENCOUNTER 2023-06-23 22:07 | Outpatient (CLI) | payer SELFPAY ==
[2023-06-23 19:37] LABS: 25-OH Vitamin D, Total 24.2 ng/mL (30-100)
[2023-06-23 19:44] LABS: Alanine Aminotransferase 56 U/L (12-78); Albumin Level 4.2 g/dl (3.5-5.0); Albumin/Globulin Ratio 1.8 (1.1-1.8); Alkaline Phosphatase 74 U/L (38-126); Anion Gap 15.7 mEq/L (5-15); Aspartate Amino Transferase 34 U/L (17-59); Bilirubin,Total 0.6 mg/dl (0.2-1.3); Blood Urea Nitrogen 19 mg/dl (9-20); Calcium 9.5 mg/dl (8.4-10.2); Carbon Dioxide 23 mmol/L (22.0-30.0); Chloride 104 mmol/L (98-107); Estimated Glomerular Filt Rate 103 ml/min (>60); GFR (African American) 124 ML/MIN (>60); Globulin 2.3 g/dL (1.3-3.2); Glucose 160 mg/dl (74-100); Potassium 4.7 mmoL/L (3.5-5.1); Sodium 138 mmol/L (136-145); Total Protein,Serum 6.5 g/dl (6.3-8.2)
[2023-06-23 20:00] LABS: Hemoglobin A1C 10.6 % (4.0-6.0)
[2023-06-23 20:14] LABS: Thyroid Stimulating Hormone 0.92 uIU/mL (0.465-4.68)
[2023-06-25 08:34] LABS: HBsAg Screen Negative (Negative); HCV Ab Non Reactive (Non Reactive); HIV Screen 4th Generation wRfx Non Reactive (Non Reactive); Hep A Ab, IGM Negative (Negative); Hep B Core Ab, IgM Negative (Negative)
== END 2023-06-23 23:59 ==
LOC: LAB.DROPOF 22:08
PROVIDERS: PCP Internal Medicine; Visit Provider Internal Medicine
DX: E11.69 Type 2 diabetes mellitus with other specified complication (principal); E55.9 Vitamin D deficiency, unspecified; I10 Essential (primary) hypertension; K75.81 Nonalcoholic steatohepatitis (NASH); E66.9 Obesity, unspecified; Z68.36 Body mass index [BMI] 36.0-36.9, adult; Z72.0 Tobacco use; Z79.4 Long term (current) use of insulin; Z79.84 Long term (current) use of oral hypoglycemic drugs
CPT/HCPCS: 80053; 80074; 82043; 82306; 83036; 84443; 86703; G0432

== ENCOUNTER 2024-01-25 22:37 | Emergency (ER) | payer SELFPAY ==
[2024-01-25 23:38] VITALS: BP 141/100; PULSE 82; RESP 17; TEMP 36.6; O2SAT 98; BMI 41.6
--- NOTE | 2024-01-25 23:46 | HMH.EDGENADL ---
Discharge Plan Disposition Patient Disposition: Home, Self-Care Prescriptions Prescriptions: No Action atorvastatin 20 mg tablet 20 mg PO DAILY 60 Days Qty: 60 2RF semaglutide 0.25 mg or 0.5 mg (2 mg/3 mL) pen injector 0.5 mg SQ WEEKLY Qty: 3 2RF cholecalciferol (vitamin D3) 25 mcg (1,000 unit) capsule 25 mcg PO DAILY 60 Days Qty: 60 2RF metformin 500 mg tablet See Rx Instructions .ROUTE .COMPLEX Qty: 60 0RF Dose Instruction: TAKE ONE TABLET BY MOUTH TWICE DAILY Rx Instructions: TAKE ONE TABLET BY MOUTH TWICE DAILY lisinopril 20 mg tablet See Rx Instructions .ROUTE .COMPLEX Qty: 30 0RF Dose Instruction: TAKE ONE TABLET BY MOUTH EVERY DAY Rx Instructions: TAKE ONE TABLET BY MOUTH EVERY DAY insulin glargine [Lantus Solostar U-100 Insulin] 100 unit/mL (3 mL) insulin pen 10 unit SQ HS 30 Days Qty: 3 1RF (DME) diabetic supplies, [employer]ellan. Misc See Rx Instructions .Route Qty: 10 0RF Rx Instructions: As directed (DME) blood-glucose meter [Blood Glucose Monitoring] Kit See Rx Instructions .Route Qty: 1 0RF Rx Instructions: As directed Referrals Follow up/Referrals: Provider,Referral, MD [Primary Care Provider] - See instructions Activity Restrictions/Add. Instructions Additional Instructions/Restrictions: Please follow-up with your primary care provider about your diabetes and blood sugar control. Please return to the emergency department if you develop any new or worsening symptoms or become concerned for your health. Clinical Impressions Clinical Impression: Acute hyperglycemia Stand Alone Forms Stand Alone Forms: Work/School Release Instructions Patient Instructions: DI for Hyperglycemia -- Adult Print Language Print Language: Kazakh Discharge ED Provider: Papa Lundberg General Adult HPI General Chief complaint: Hyper/Hypoglycemia Stated complaint: high blood sugar Time Seen by Provider: 01/25/24 23:31 History of Present Illness HPI narrative: 48-year-old male with history of hypertension obesity and type 2 diabetes presents for high blood sugar. He reports that he started noticing that he felt like his mouth was dry and he started peeing more than normal. First noticed symptoms this afternoon. He reports that he was previously on insulin but is now just on metformin. He denies any recent fever or illness. Denies any burning with urination. Denies any chest pain abdominal pain shortness of breath. Related Data Previous Rx's ?Medication ?Instructions ?Recorded blood-glucose meter (Blood Glucose #1 ea 06/09/23 Monitoring kit) diabetic supplies, [employer]. #10 ea 06/09/23 insulin glargine 100 unit/mL (3 10 unit (0.1 mL) SQ HS 30 days #3 06/09/23 mL) subcutaneous pen (Lantus mL Solostar U-100 Insulin) atorvastatin 20 mg tablet 20 mg PO DAILY 60 days #60 tabs 06/24/23 cholecalciferol (vitamin D3) 25 25 mcg PO DAILY 60 days #60 caps 06/24/23 mcg (1,000 unit) capsule semaglutide 0.25 mg or 0.5 mg (2 0.5 mg (0.736 mL) SQ WEEKLY #3 mL 06/24/23 mg/3 mL) subcutaneous pen injector metformin 500 mg tablet See Rx Instructions .Route 10/11/23 .COMPLEX #60 tabs lisinopril 20 mg tablet See Rx Instructions .Route 11/17/23 .COMPLEX #30 tabs Allergies Allergy/AdvReac Type Severity Reaction Status Date / Time No Known Allergies Allergy Verified 06/23/23 11:04 [facility] Disclaimer: The information contained in this section may have been updated after the patient was seen, as this information can be updated by other users. Medical History Current smoker Diabetes mellitus, new onset Hypertension Obesity (BMI 30-39.9) Polydipsia Polyuria Strain of muscle of torso Social History Smoking Status: Unknown if ever smoked alcohol intake: never current occupational status: employed Travel in the last 8 weeks: None ROS Obtained: Yes All systems reviewed & no additional complaints except as documented Physical Exam General General appearance: alert, in no apparent distress and obese Head Head exam: atraumatic and normocephalic Eye Eye exam: Present normal appearance, PERRL and EOMI ENT ENT exam: Present normal oropharynx, mucous membranes dry and normal external ear exam Neck Neck exam: Present normal inspection and full ROM Chest Chest inspection: Present normal inspection and symmetric chest wall rise; Absent tenderness Respiratory Respiratory exam: Present normal lung sounds bilaterally; Absent respiratory distress Cardiovascular Cardiovascular exam: Present regular rate and normal rhythm Abdominal Exam Abdominal exam: Present soft; Absent distention, tenderness or guarding Extremities Exam Extremities exam: Present normal inspection; Absent edema or joint swelling Back Exam Back exam: Present normal inspection; Absent tenderness Neurological Exam Neurological exam: Present alert and oriented X3; Absent motor sensory deficit Psychiatric Psychiatric exam: Present normal affect and normal mood Skin Skin exam: Present warm, dry and normal color Lymphatic Lymphatic Findings: no adenopathy Medical Decision Making Medical Records Medical records reviewed: Yes I reviewed the patient's medical records. Elieser Inquiry Pt receiving controlled substance: No Elieser was queried for this patient: No Vital Signs: 01/25/24 23:38 01/26/24 00:00 01/26/24 00:30 Temperature 98 F Temperature Source Oral Pulse Rate 85 80 Pulse Rate [Right Brachial] 82 Respiratory Rate 17 Blood Pressure 154/96 H 164/92 H Blood Pressure [Right Arm] 141/100 H Blood Pressure Mean 109 114 Blood Pressure Mean [Right Arm] 113 Blood Pressure Source [Right Arm] Automatic Cuff Blood Pressure Position [Right Arm] Sitting 02 Sat by Pulse Oximetry 98 95 95 Oxygen Delivery Method Room Air Room Air Room Air 01/26/24 01:00 01/26/24 01:30 Temperature Temperature Source Pulse Rate 85 87 Pulse Rate [Right Brachial] Respiratory Rate Blood Pressure 161/98 H 158/99 H Blood Pressure [Right Arm] Blood Pressure Mean 110 109 Blood Pressure Mean [Right Arm] Blood Pressure Source [Right Arm] Blood Pressure Position [Right Arm] 02 Sat by Pulse Oximetry 95 95 Oxygen Delivery Method Room Air Room Air Lab Data Lab results reviewed: Yes I reviewed the patient's lab results. Lab Results 01/25/24 23:40: WBC 9.1, RBC 5.72, Hgb 17.0, Hct 52.2 H, MCV 91.3, MCH 29.7, MCHC 32.5, RDW 13.7, Plt Count 185, MPV 8.7, Neut % (Auto) 60.6, Lymph % (Auto) 30.1, [place] % (Auto) 4.3, Eos % (Auto) 3.5, Baso % (Auto) 1.5, Neut # (Auto) 5.5, Lymph # (Auto) 2.8, [place] # (Auto) 0.4, Eos # (Auto) 0.3, Baso # (Auto) 0.1, Sodium 129 L, Potassium 4.4, Chloride 98, Carbon Dioxide 25, Anion Gap 10.4, BUN 21 H, Creatinine 0.90, Estimated Creat Clear 90, Estimated GFR 90, Est GFR ( Amer) 109, Glucose 548 H*, Calcium 9.4, Magnesium 2.0, Total Bilirubin 1.0, AST 26, ALT 35, Alkaline Phosphatase 113, Total Protein 7.2, Albumin 4.4, Globulin 2.8, Albumin/Globulin Ratio 1.6, Acetone Level None detected 01/25/24 23:48: VBG pH 7.41, VBG pCO2 36.6, VBG pO2 75.2 H, VBG HCO3 22.7 L, VBG Total CO2 23.8, VBG O2 Saturation 95.5 H, VBG Base Excess -2.0, VBG Lactic Acid 1.8 01/26/24 01:20: Urine Color Yellow, Urine Appearance Clear, Urine pH 6.0, Ur Specific [place] 1.015, Urine Protein Negative, Urine Glucose (UA) 3+, Urine Ketones Negative, Urine Blood Negative, Urine Nitrate Negative, Urine Bilirubin Negative, Urine Urobilinogen 0.2, Ur Leukocyte Esterase Negative 01/25/24 23:40 01/25/24 23:40 Orders (Tests/Meds): ED MEDICATIONS Discontinued Medications Generic Name Dose Route Start Last Admin Trade Name Freq PRN Reason Stop Dose Admin Lactated Ringer's 1,000 mls @ 999 mls/hr 01/25/24 23:45 01/26/24 01:18 Lactated Ringer's 1000 Ml Bag IV 01/26/24 01:45 999 mls/hr .Q1H1M SVETLANA Administration Insulin Human Lispro 15 unit 01/26/24 00:17 01/26/24 00:28 Humalog 100 Units/Ml 10ml Vial (Ssi) SQ 01/26/24 00:18 15 unit ONCE ONE Administration ORDERS Category Date Time Status Acetone, Serum (Rapid) Stat Lab 01/25/24 23:40 Completed CBC w/Auto Diff [Complete Blood Count Auto Diff] Stat Lab 01/25/24 23:40 Completed CMP [Comprehensive Metabolic Panel] Stat Lab 01/25/24 23:40 Completed Magnesium Stat Lab 01/25/24 23:40 Completed UA [Urinalysis and Microscopic] Stat Lab 01/26/24 01:20 Results VBG [Venous Blood Gas] Stat RT 01/25/24 23:48 Completed Medical Decision Narrative: 48-year-old male with history of hypertension diabetes type 2 and obesity presents for high blood sugar that he noticed this afternoon.. History was obtained via interactive discussion with patient, chart review. On arrival, patient is [afebrile, hemodynamically stable, satting appropriately, alert, oriented x4, GCS 15], moving all extremities spontaneously. Full physical exam performed and significant for dry mucous membranes, otherwise benign exam. Blood sugar on arrival 580. Differential includes but is not limited to DKA, HHS, hyperglycemia, UTI, electrolyte derangement, BUFFY. Patient was given 2 L IV fluid bolus, 15 of lispro for symptomatic management and correction of underlying abnormalities. Workup initiated including CBC CMP VBG acetone urinalysis. On re-evaluation, patient [remains afebrile, HD stable.] Blood sugar improved after interventions. Laboratory workup independently interpreted by me and significant for hyperglycemia without evidence of DKA, significant electrolyte derangement, BUFFY etc.. Urinalysis without evidence of infection Given patient history, exam and workup, patient's presentation most likely represents hyperglycemia. Patient was encouraged to follow-up with PCP and get restarted on insulin. Discharged in stable condition. Return precautions given. Procedures Risk/Benefits of Procedure(s) Were Explained: Yes Critical Care Critical Care Time Critical Care Time: No
[2024-01-25 23:56] LABS: Basophils # 0.1 K/mm3 (0-0.2); Basophils % 1.5 % (0.1-2.0); Eosinophils # 0.3 K/mm3 (0.0-0.4); Eosinophils % 3.5 % (0.1-12.0); Hematocrit 52.2 % (42.0-52.0); Lymphocytes # 2.8 K/mm3 (0.7-4.5); Lymphocytes % 30.1 % (10-50); Mean Corpuscular HGB Conc 32.5 g/dL (31.8-35.4); Mean Corpuscular Hemoglobin 29.7 pg (27.0-31.2); Mean Corpuscular Volume 91.3 fl (80-94); Mean Platelet Volume 8.7 fl (7.4-10.4); Monocytes # 0.4 K/mm3 (0.1-1.0); Monocytes % 4.3 % (1.7-9.3); Neutrophils # 5.5 K/mm3 (1.8-7.8); Neutrophils % 60.6 % (37.0-80.0); Platelet Count 185 K/mm3 (142-424); Red Blood Count 5.72 M/mm3 (4.60-6.20); Red Cell Distribution Width 13.7 % (11.5-17.5); White Blood Count 9.1 K/mm3 (4.8-10.8)
[2024-01-25] MEDS: LACTATED RINGERS 1000ML 1,000 ML 999 ML IV (23:58)
[2024-01-26] VITALS: BP 154/96; PULSE 85; O2SAT 95
[2024-01-26 00:11] LABS: Lactate Venous 1.8 mmol/L (0.4-2.0); VBG HCO3 22.7 mmol/L (23-30); VBG Oxygen Saturation 95.5 % (50-70); VBG PCO2 36.6 mmol/L (35-51); VBG PH 7.41 mmol/L (7.31-7.41); VBG PO2 75.2 mmol/L (28-40); VBG Total CO2 23.8 mmol/L (23-27)
[2024-01-26 00:12] LABS: Albumin Level 4.4 g/dl (3.5-5.0); Chloride 98 mmol/L (98-107); Sodium 129 mmol/L (136-145)
[2024-01-26 00:13] LABS: Acetone, Serum (Rapid) None Detected (None Detect); Potassium 4.4 mmoL/L (3.5-5.1)
[2024-01-26 00:16] LABS: Alanine Aminotransferase 35 U/L (12-78); Albumin/Globulin Ratio 1.6 (1.1-1.8); Alkaline Phosphatase 113 U/L (38-126); Anion Gap 10.4 mEq/L (5-15); Aspartate Amino Transferase 26 U/L (17-59); Blood Urea Nitrogen 21 mg/dl (9-20); Calcium 9.4 mg/dl (8.4-10.2); Carbon Dioxide 25 mmol/L (22.0-30.0); Creatinine Clearance Estimated 90 mL/min (50-200); Estimated Glomerular Filt Rate 90 ml/min (>60); GFR (African American) 109 ML/MIN (>60); Globulin 2.8 g/dL (1.3-3.2); Total Protein,Serum 7.2 g/dl (6.3-8.2)
[2024-01-26 00:17] LABS: Glucose 548 mg/dl (74-100)
[2024-01-26] MEDS: humaLOG 100 UNITS/ML 10ML VIAL (SSI) 15 UNIT SQ (00:28)
[2024-01-26 00:30] VITALS: BP 164/92; PULSE 80; O2SAT 95
[2024-01-26 01:00] VITALS: BP 161/98; PULSE 85; O2SAT 95
[2024-01-26] MEDS: LACTATED RINGERS 1000ML 1,000 ML 999 ML IV (01:18)
--- NOTE | 2024-01-26 01:22 | PC.NURSE ---
Blood Glucose 422, provider aware
[2024-01-26 01:25] LABS: Microscopic, Urine URINE MICROSCOPIC (MICROSCOPIC)
[2024-01-26 01:26] LABS: Appearance,Urine CLEAR (Clear); Bilirubin,Urine Negative (Negative); Blood, Urine Negative (Negative); Color,Urine YELLOW (Yellow); Glucose,Urine (UA) 3+ (Negative); Ketones,Urine Negative (Negative); Leukocyte Esterase,Urine Negative (Negative); Nitrate,Urine Negative (Negative); Protein,Urine Negative (Negative); Specific Gravity, Urine 1.015 (1.005-1.030); Urobilinogen,Urine 0.2 EU/dl (0.2)
[2024-01-26 01:30] VITALS: BP 158/99; PULSE 87; O2SAT 95
[2024-01-26 02:03] VITALS: BP 158/99; PULSE 79; RESP 18; TEMP 36.8; O2SAT 98
[2024-01-26 02:09] LABS: Bacteria,Urine 1+ /lpf; Trichomonas,Urine 1+ /lpf
--- NOTE | 2024-01-26 08:51 | PC.NURSE ---
contacted the pt about his test results, voicemail left for pt to call back for those results.
--- NOTE | 2024-01-26 10:03 | PC.NURSE ---
pt aware of antibiotic and test results
== END 2024-01-26 02:04 | disposition home or self-care (01) ==
PROVIDERS: Emergency Provider Emergency Medicine
DX: E11.65 Type 2 diabetes mellitus with hyperglycemia (principal); A59.9 Trichomoniasis, unspecified; I10 Essential (primary) hypertension
CPT/HCPCS: 80053; 81001; 82009; 82803; 83735; 85025; 96360; 96372; 99285; J7120

== ENCOUNTER 2025-01-30 09:40 | Outpatient (CLI) | payer BC, SELFPAY ==
[2025-01-30 20:32] LABS: Hematocrit 45.3 % (42.0-52.0); Hemoglobin 16.0 g/dL (14.1-18.0); Immature Granulocytes % 0.5 %; Mean Corpuscular HGB Conc 35.3 g/dL (31.8-35.4); Mean Corpuscular Hemoglobin 29.7 pg (27.0-31.2); Mean Corpuscular Volume 84.2 fl (80-94); Nucleated Red Blood Cells % 0 %; Platelet Count 212 K/mm3 (142-424); Red Blood Count 5.38 M/mm3 (4.60-6.20); Red Cell Distribution Width-SD 38.8 fL; White Blood Count 7.4 K/mm3 (4.8-10.8)
[2025-01-30 20:55] LABS: Alanine Aminotransferase 23 U/L (12-78); Albumin Level 3.9 g/dl (3.5-5.0); Albumin/Globulin Ratio 1.6 (1.1-1.8); Alkaline Phosphatase 84 U/L (38-126); Anion Gap 14.9 mEq/L (5-15); Aspartate Amino Transferase 22 U/L (17-59); Bilirubin,Total 0.9 mg/dl (0.2-1.3); Blood Urea Nitrogen 22 mg/dl (9-20); Calcium 8.7 mg/dl (8.4-10.2); Carbon Dioxide 22 mmol/L (22.0-30.0); Chloride 98 mmol/L (98-107); Cholesterol 172 mg/dl (140-200); Creatinine,Serum 0.80 mg/dl (0.66-1.25); Estimated Glomerular Filt Rate 102 ml/min (>60); GFR (African American) 124 ML/MIN (>60); Globulin 2.4 g/dL (1.3-3.2); HDL Cholesterol 21 mg/dl (40-60); Potassium 4.9 mmoL/L (3.5-5.1); Sodium 130 mmol/L (136-145); Total Protein,Serum 6.3 g/dl (6.3-8.2)
[2025-01-30 21:06] LABS: Hemoglobin A1C 12.6 % (4.0-6.0)
[2025-01-30 21:23] LABS: Triglycerides 693 mg/dl (30-150)
[2025-01-30 21:26] LABS: Glucose 568 mg/dl (74-100)
[2025-01-30 22:24] LABS: Thyroid Stimulating Hormone 1.81 uIU/mL (0.465-4.68)
--- OUTSIDE RECORDS SUMMARY | 2025-02-01 09:43 | XMS_ITS | Clinical Summary ---
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 2 Active metFORMIN XR (GLUCOPHAGE-XR) 750 MG 24 hr tablet TAKE 2 TABLETS BY MOUTH DAILY. START WITH 1 TABLET BY MOUTH IN THE EVENING AND. INCREASE DOSE TO 2 TABLETS BY MOUTH IN THE EVENING TOLERATED 2 Active Active Problems No known active problems Social History Tobacco Use Types Packs/Day Years Used Date Smoking Tobacco: Some Days Smokeless Tobacco: Never Intimate Partner Violence Answer Date R ecorded Insults You Not on file 09/05/2020 Threatens You Not on file 09/05/2020 Screams at You Not on file 09/05/2020 Physically Hurt Not on file 09/05/2020 Intimate Partner Violence Score Not on file 09/05/2020 Stress Answer Date Recorded Stress in your Life 0 06/30/2020 Dealing with Stress Not on file 06/30/2020 Sex and Gender Information Value Date Recorded Sex Assigned at Not on file Legal 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 Gender Identity Not on file Sexual Orientation Not on file Last Filed Vital Signs Vital Sign Reading Time Taken Comments Blood Pressure 140/84 09/22/2021 1:59 PM EDT Pulse 87 10/20/2021 8:01 PM EDT Temperature 35.6 C (96 F) 10/21/2021 10:02 PM EDT Respiratory Rate - - Oxygen Saturation 98% 10/20/2021 8:01 PM EDT Inhaled Oxygen Concentration - - Weight 130 kg (286 lb 3.2 oz) 09/22/2021 12:30 P M EDT Height 179.1 cm (5' 10.5 ) 09/22/2021 12:30 PM E DT Body Mass Index 40.49 09/22/2021 12:30 PM EDT Plan of Treatment Health Maintenance Due Date Last Done Comments CT Colonography 1974 Colonoscopy 1974 Colorectal Cancer Screening Combo 1974 DNA Cologuard 1974 Dental Cleaning/Exam 1974 FIT or FOBT Test 1974 Sigmoidoscopy 1974 Hepatitis B Immunization (1 of 3 - 19+ 3-dose series) 1993 Tetanus Diphtheria and Pertu ssis Immunization (1 - Tdap) 1993 Zoster Immunization (1 of 2) 2024 Covid-19 Immunization (1 - 2 25 season) 2025 Influenza Immunization (#1) 2025 HIB Immunization Aged Out No longer e ligible based on patient's age to complete this topic HPV Immunization Aged Out No longer e ligible based on patient's age to complete this topic Hepatitis A Immunization Aged Out No longer eligible based on patient's age to complete this topic Pneumococcal: Ped (0 to 5 Yr s) and At-Risk Member (6 to 64 Yrs) Aged Out No longer e ligible based on patient's age to complete this topic Polio Immunization Aged Out No longer eligible based on patient's age to complete this topic Insurance OPT OUT NO COPAY NB
== END 2025-01-30 23:59 ==
LOC: LAB.DROPOF 02-01 09:41
PROVIDERS: PCP Family Medicine; Visit Provider Family Medicine
DX: E11.69 Type 2 diabetes mellitus with other specified complication (principal); E11.65 Type 2 diabetes mellitus with hyperglycemia; E66.9 Obesity, unspecified; E78.5 Hyperlipidemia, unspecified; Z12.5 Encounter for screening for malignant neoplasm of prostate
CPT/HCPCS: 80053; 80061; 83036; 84443; 85025; G0103